=== PATIENT | male | born 1980 | race Caucasian/White ===

== ENCOUNTER 2022-02-16 09:24 | Emergency (ER) | payer OTHER, SELFPAY ==
--- NOTE | ~2022-02-16 | XR_ITS ---
EXAMINATION: XR chest 2V DATE: 02/16/2022 10:52 INDICATION: Cough. Right rib pain. TECHNIQUE: Frontal and lateral views of the chest were obtained. COMPARISON: None. FINDINGS: The chest demonstrates clear lungs without pneumonia, pleural effusion, or pneumothorax. Th e heart size is normal. IMPRESSION: 1. No acute cardiopulmonary disease. Reviewed, dictated and finalized at location A. FIXER
[2022-02-16 09:31] VITALS: BP 137/87; PULSE 90; RESP 18; TEMP 37.7; O2SAT 96
--- NOTE | 2022-02-16 10:38 | ED.URI ---
HPI - URI/Sore Throat General Chief Complaint: Upper Respiratory Infection Stated Complaint: upper respiratory Time Seen by Provider: 02/16/22 10:38 Source: patient, RN notes reviewed and old records reviewed Mode of arrival: ambulatory Limitations: no limitations History of Present Illness HPI Narrative: 41 year old male who presents to [facility] care with complaints of cough and congestion with initially some fevers starting the week of . Today he presents with continued cough, feelings of chest congestion and some discomfort to right lower rib cage, reports that he has not had fevers this week and is hoarse.Patient reports that he has been COVID vaccinated but no flu shot.He states that he has been taking some cold medication and Ibuprofen for his symptoms. MD elicited complaint: cough, sore throat and other (hoarseness) Onset (ago): day(s) (greater than 10 days) Exacerbating factors: other (coughing) Treatments prior to arrival: ibuprofen and cold medicine Related Data Allergies Allergy/AdvReac Type Severity Reaction Status Date / Time No Known Allergies Allergy Unknown Unverified 02/16/22 10:11 Review of Systems Review of Systems: CONSTITUTIONAL: reports malaise, chills, sweats, or fever. EYES: Denies visual changes, redness, or discharge. ENT: Reports rhinorrhea, congestion, sinus pain,no otalgia or sore throat, hoarseness noted also CARDIOVASCULAR: Denies chest pain, palpitations, or edema. RESPIRATORY: Reports cough.? Denies dyspnea. GASTROINTESTINAL: Denies abdominal pain, nausea, vomiting, diarrhea SKIN: Denies rash or itching. MUSCULOSKELETAL: Denies myalgia. NEUROLOGIC: Denies headache. All systems reviewed & are unremarkable except as noted in HPI and below PMFSH Surgical History Surgical History (Updated 02/19/22 @ 09:45 by Marissa Edmonds NP) History of removal of testicle Social History Social History (Updated 02/19/22 @ 09:51 by Marissa Edmonds NP) Smoking status: Never smoker Alcohol intake: unknown Substance use type: does not use Gender identity (if verbalized by the patient): Male Comments At time of signature, agree with nursing past medical, surgical, social and family history. There is no relevant family history pertinent to the presenting complaint Exam Narrative: GENERAL: Well-appearing, well-nourished, and in no acute distress. HEAD: Normocephalic EYES: PERRLA, conjunctivae clear ENT: Nares clear, turbinates edematous and erythematous, clear discharge. Mucous membranes moist. TM pearly [place] with dull light reflex bilaterally; no tragal tenderness. Oropharynx erythematous without lesions. Tonsils not enlarged and without exudate, no drooling, no hoarseness, no trismus, uvula midline. NECK: Supple. No lymphadenopathy CHEST: Scattered wheezes on auscultation, breath sounds equal. scattered wheezing, no rhonchi, rales, or stridor. No respiratory distress, speaks in full sentences.harsh cough SAO2 96% on room air HEART: Regular rate and rhythm. No murmur heard. SKIN: Warm, dry, no rash. NEURO: Alert and oriented x3. PSYCH: Normal mood and affect Course Course Emergency Course: Patient is aware of diagnosis, understands and agrees to treatment plan.? Anticipatory guidance given.? Patient agrees to follow-up as directed and is aware of reasons to seek care at the emergency department. Portions of this record may have been created with voice recognition software Level of Care: Express Care Visit Vital Signs Vital signs: Vital Signs Temperature 37.7 C H 02/16/22 09:31 Pulse Rate 90 02/16/22 09:31 Respiratory Rate 18 02/16/22 09:31 Blood Pressure 137/87 02/16/22 09:31 Pulse Oximetry 96 02/16/22 09:31 Oxygen Delivery Room Air 02/16/22 09:31 Temperature 37.7 C H 02/16/22 09:31 Pulse Rate 90 02/16/22 09:31 Respiratory Rate 18 02/16/22 09:31 Blood Pressure 137/87 02/16/22 09:31 Pulse Oximetry 96
== END 2022-02-16 11:46 | disposition home or self-care (01) ==
PROVIDERS: Emergency Provider Registered Nurse
DX: J06.9 Acute upper respiratory infection, unspecified (principal)
CPT/HCPCS: 71046; 99203; G0463

== ENCOUNTER 2024-03-16 12:43 | Outpatient (CLI) | payer OTHER, SELFPAY ==
[2024-03-16 20:49] LABS: Hematocrit 48.8 % (42.0-52.0); Hemoglobin 15.8 g/dL (14.0-18.0); Mean Corpuscular HGB Conc 32.4 g/dl (32-36); Mean Corpuscular Hemoglobin 29.3 pg (26-34); Mean Corpuscular Volume 90.4 fl (80-100); Mean Platelet Volume 10.5 fl (7.4-10.4); Platelet Count Result 251 k/mm3 (150-375); Red Cell Distribution Width 12.3 % (11.5-14.5); White Blood Count 6.5 K/mm3 (4.5-10.0)
[2024-03-16 21:49] LABS: Hemoglobin A1C 6.3 % (<5.7)
[2024-03-16 22:02] LABS: Alanine Aminotransferase 81 U/L (6-50); Albumin Level 4.2 g/dL (3.5-5.1); Alkaline Phosphatase 100 U/L (38-126); Anion Gap -1 mmol/L (4-12); Aspartate Amino Transferase 81 U/L (17-59); Bilirubin,Total 0.8 mg/dL (0.2-1.3); Blood Urea Nitrogen 15 mg/dL (9-20); Calcium 9.1 mg/dL (8.4-10.2); Carbon Dioxide 30 mmol/L (22-30); Chloride 108 mmol/L (98-107); Cholesterol 218 mg/dL (0-200); Estimated Glomerular Filt Rate 60; Glucose 93 mg/dL (65-110); HDL Direct 35 mg/dL; Potassium 4.6 mmol/L (3.4-5.0); Sodium 137 mmol/L (137-145); Triglycerides 185 mg/dL (<150)
[2024-03-16 22:13] LABS: LDL Cholesterol Direct 134 mg/dL
[2024-03-16 22:33] LABS: Prostate Specific Antigen 0.5 ng/mL (< OR = 4.0)
== END 2024-03-16 12:44 | disposition home or self-care (01) ==
LOC: ANHBWCLAB 12:44
PROVIDERS: PCP Nurse Practitioner Adult Health; Visit Provider Nurse Practitioner Adult Health
DX: R73.9 Hyperglycemia, unspecified (principal); Z13.9 Encounter for screening, unspecified; Z12.5 Encounter for screening for malignant neoplasm of prostate
CPT/HCPCS: 36415; 80053; 80061; 83036; 84153; 84443; 85027; G0103

== ENCOUNTER 2024-07-09 16:13 | Outpatient (CLI) | payer OTHER, SELFPAY ==
--- NOTE | ~2024-07-09 | XR_ITS ---
3 VIEWS LUMBAR SPINE Ordering provider: Radha Green APRN History: . Pain in lower back, hurts to sit, injury 6 mths ago . Comparison: None. FINDINGS: VERTEBRAL BODIES: No visible fracture or subluxation. DISK SPACES: Narrowing of the disc L5-S1. SOFT TISSUES: Normal. IMPRESSION: No acute osseous abnormality lumbar spine. Degenerative disc disease at the level of L5-S1. Reviewed, dictated and finalized at location A.
--- NOTE | ~2024-07-09 | XR_ITS ---
XR sacrum coccyx min 2V Ordering provider: Radha Green APRN History: . M54.9 - Dorsalgia, unspecified . Comparison: None. FINDINGS: BONES: Posterior dislocation of the sacrococcygeal area. Possibility of a fracture cannot be excluded . JOINTS: The sacroiliac joint spaces are normal. SOFT TISSUES: Soft tissues are normal. IMPRESSION: Dislocation at the sacrococcygeal articulation with possibility of a fracture in the last coccygeal s egment. CT evaluation advised. Reviewed, dictated and finalized at location A. IMPRESSION: Dislocation at the sacrococcygeal articulation with possibility of a fracture i n the last coccygeal segment. CT evaluation advised.
== END 2024-07-09 16:14 | disposition home or self-care (01) ==
LOC: ANHBWCIMG 16:15
PROVIDERS: PCP Nurse Practitioner Adult Health; Visit Provider Nurse Practitioner Adult Health
DX: M51.379 Other intervertebral disc degeneration, lumbosacral region without mention of lumbar back pain or lower extremity pain (principal)
CPT/HCPCS: 72100; 72220

== ENCOUNTER 2024-08-28 12:57 | Emergency (ER) | payer OTHER, SELFPAY ==
--- OUTSIDE RECORDS SUMMARY | 2024-08-28 12:59 | XMS_ITS | Referral Summary ---
Author Organization [facility] [place] [address] [facility] lto Address [address] [place] [address] Care Team Providers Care Stock Buyer Name Role Phone Brooklyn Bonner DNP Unavailable [phone] Encounters Date Type Department Care Team Description 08/24/2024 Documentation [facility] [address] [facility] [address] [place] [id number] Luci Perales, ALEENA Prior Auth (Zepbound 2.5MG/0.5ML pen-injectors) from Last 3 Months Allergies No known active allergies Medications cetirizine (ZyrTEC) 10 mg tablet daily Active fluticasone propionate (FLONASE) 50 mcg/actuation nasal spray fluticasone propionate 50 mcg/actuation nasal spray,suspensio n SHAKE LIQUID AND USE 2 SPRAYS IN EACH NOSTRIL EVERY DAY Active pen needle, diabetic (NovoFine Plus) 32 gauge x 1/6 needleIndication s:Class 3 severe obesity without serious comorbidity with body mass index (BMI) of 40.0 to 44.9 in adult, unspecified obesity type,BMI 40.0-44.9, adult (HCC) 1 each daily 100 each 1 3 Active tirzepatide, weight loss, 2.5 mg/0.5 mL pen injectorIndicati ons:Class 3 severe obesity without serious comorbidity with body mass index (BMI) of 40.0 to 44.9 in adult, unspecified obesity type,BMI 40.0-44.9, adult (HCC) Inject 0.5 mL (2.5 mg total) under the skin every 7 days 3 mL 3 Active tirzepatide, weight loss, (ZEPBOUND) 5 mg/0.5 mL pen injectorIndicati ons:Class 3 severe obesity without serious comorbidity with body mass index (BMI) of 40.0 to 44.9 in adult, unspecified obesity type,BMI 40.0-44.9, adult (HCC) Inject 0.5 mL (5 mg total) under the skin every 7 days 3 mL 4 Active Active Problems Problem Noted Date Diagnosed Date BMI 40.0-44.9, adult 03/30/2022 Assessment & Plan (03/30/2022 10:27 AM INSURANCE APPRAISER): Discussed current weight, weight history and previous weight loss attempts. Discussed risks of obesity including development of weight related comorbidities. Discussed the importance of diet in weight loss. Advised to start tracking caloric intake and decrease. Advised 150 min of moderate intensity exercise per week. Information [facility]. Follow-up to possibly discuss medication options to help with weight loss if no improvement seen with consistent lifestyle changes. Decreased testosterone level 10/18/2021 Prediabetes 10/18/2021 Vitamin D deficiency 10/18/2021 Acute pain of right knee 11/05/2019 Effusion of right knee 11/05/2019 Immunizations Immunization Administration Dates Next Due Influenza, Quadrivalent, Zenaida l Culture-based MDCK, Preservative Free, Antibiotic Free, Intramuscular 03/30/2022 Influenza, Quadrivalent, Split, Intramuscular Influenza, Quadrivalent, Spl it, Preservative Free, Intramuscular 03/17/2020 Tdap 06/22/2019,02/24/2019 Social History Tobacco Use Types Packs/Day Years Used Date Smoking Tobacco: Never Smokeless Tobacco: Never Alcohol Use Standard Drinks/Week Comments Not Currently 0 (1 standard drink = 0.6 oz pur e alcohol) PHQ-2 Answer Date Recorded PHQ-2 Total Score (If total score is 3 or more points, staff should administer the PHQ-9) 0 03/30/2022 Personal Safety Answer Date Recorded Getting School Help Needed Not on file 11/08 Sex and Gender Information Value Date Recorded Sex Assigned at Not on file Legal Sex Male 11:48 AM INSURANCE APPRAISER Gender Identity Not on file Sexual Orientation Not on file Last Filed Vital Signs Vital Sign Reading Time Taken Comments Blood Pressure 125/87 02/20/2023 12:48 PM INSURANCE APPRAISER Pulse 70 02/20/2023 12:48 PM INSURANCE APPRAISER Temperature 36.6 C (97.9 F) 02/20/2023 12:48 PM INSURANCE APPRAISER Respiratory Rate 17 10/27/2022 11:1 0 PM CDT Oxygen Saturation 96% 02/20/2023 12: 48 PM INSURANCE APPRAISER Inhaled Oxygen Concentration - - Weight 134.4 kg (296 lb 3.2 oz) 023 12:48 PM INSURANCE APPRAISER Height 182.9 cm (6') 02/20/2023 12:48 PM INSURANCE APPRAISER Body Mass Index 40.17 02/20/2023 12:48 PM INSURANCE APPRAISER Plan of Treatment Not on file Insurance [facility] [employer] [facility] [employer] Address: [facility] [id number] [place] [id number] [facility] [employer] [facility] H[employer]/PPO Address: [address] [address] [place] [address] [facility] [employer] Address: [address] [place] [phone] [facility] [employer] Address: [address] [address] [place] [address] Care Teams Stock Buyer Relationship Specialty Start Date End Date Brooklyn Bonner DNP [address] [address] Nurse Practitioner Nurse Practitioner 05/08/23
--- OUTSIDE RECORDS SUMMARY | 2024-08-28 12:59 | XMS_ITS | Clinical Summary ---
Author Organization [facility] Address [address] [place] [address] Phone Care Team Providers Care Bridge/Structure Inspection Team Leader Name Role Phone Unavailable Primary Care Provider Unavailabl e Allergies No known active allergies Medications No known medications Active Problems Problem Noted Date Diagnosed Date Prediabetes 09/20/2023 Morbid obesity with body mass index of 40.0-49.9 09/20/2023 Family History Medical History Relation Name Comments Colon Cancer Neg Hx Social History Tobacco Use Types Packs/Day Years Used Date Smoking Tobacco: Never Smokeless Tobacco: Never Tobacco Cessation:Counseling Given: Not Answered Alcohol Use Standard Drinks/Week Comments Yes 0 (1 standard drink = 0.6 oz pur e alcohol) Sex and Gender Information Value Date Recorded Sex Assigned at Not on file Legal Sex Male 11:01 PM CDT Gender Identity Not on file Sexual Orientation Not on file Last Filed Vital Signs Vital Sign Reading Time Taken Comments Blood Pressure 138/81 08/23/2023 1:20 PM CDT Pulse 52 08/23/2023 1:20 PM CDT Temperature 36.3 C (97.4 F) 08/23/2023 1:00 PM CDT Respiratory Rate 18 08/23/2023 1:20 PM CDT Oxygen Saturation 94% 08/23/2023 1:20 PM CDT Inhaled Oxygen Concentration - - Weight 132.9 kg (293 lb) 08/23/2023 12:11 PM CDT Height 180.3 cm (5' 11) 08/23/2023 12:11 PM CDT Body Mass Index 40.87 08/23/2023 12:11 PM CDT Plan of Treatment Health Maintenance Due Date Last Done Comments Pre-Diabetes and Diabetes Screening 1981 HEPATITIS B VACCINES (1 of 3 - 19+ 3-dose series) 02/26/2000 INFLUENZA VACCINE (#1) 2023 3, 03/17/2020, 03/17/2020 DTAP/TDAP/TD VACCINES (3 - Td or Tdap) 06/21/2029 06/22/2019, 02/24/2019 HPV VACCINES Aged Out No longer eligi ble based on patient's age to complete this topic Insurance [facility] [id number] Advance Directives For more information, please contact: [phone] * Full Code (Latest Code Status on File) Date Activated Date Inactivated Comments 08/23/2023 12:08 PM 08/23/2023 3:23 PM
--- OUTSIDE RECORDS SUMMARY | 2024-08-28 12:59 | XMS_ITS | Clinical Summary ---
Author Organization [facility] [place] [address] [facility] lto Address [address] [facility] [place] [address] Care Team Providers Care Diesel Dinkey Operator Name Role Phone Brooklyn Bonner DNP Unavailable Allergies No known active allergies Medications cetirizine [...] in adult, unspecified obesity type,BMI 40.0-44.9, adult ([facility]) Inject 0.5 mL (5 mg total) under the skin every 7 days 3 mL 4 Active Active Problems Problem Noted Date Diagnosed Date BMI 40.0-44.9, adult 03/30/2022 Assessment & Plan (03/30/2022 10:27 AM CANDY WAFFLE ASSEMBLER): Discussed current weight, weight history and previous weight loss attempts. Discussed risks of obesity including development of weight related comorbidities. Discussed the importance of diet in weight loss. Advised to start tracking caloric intake and decrease. Advised 150 min of moderate intensity exercise per week. Information given for [facility] Weight management program. Follow-up to possibly discuss medication options to help with weight loss if no improvement seen with consistent lifestyle changes. Decreased testosterone level 10/18/2021 Prediabetes 10/18/2021 Vitamin D deficiency 10/18/2021 Acute pain of right knee 11/05/2019 Effusion of right knee 11/05/2019 Encounters Date Type Department Care Team Description 08/24/2024 Documentation [place] [id number] [address] Luci Perales, ALEENA Prior Auth (Zepbound 2.5MG/0.5ML pen-injectors) from Last 3 Months Immunizations Immunization Administration Dates Next Due Influenza, Quadrivalent, Zenaida l Culture-based MDCK, Preservative Free, Antibiotic Free, Intramuscular 03/30/2022 Influenza, Quadrivalent, Split, Intramuscular Influenza, Quadrivalent, Spl it, Preservative Free, Intramuscular 03/17/2020 Tdap 06/22/2019,02/24/2019 Surgical History Surgery Date Site/Laterality Comments TESTICLE SURGERY 1 testicle removed when a child. Medical History Medical History Date Comments Prediabetes Family History Medical History Relation Name Comments No Known Problems Brother 1 No Known Problems Brother 2 No Known Problems Brother 3 Lung cancer Father + tob Lung cancer Father's Brother + tob Colon cancer Father's Sister 1 Diabetes Father's Sister 2 Heart disease Maternal Grandfather Heart disease Maternal Grandmother Heart disease Mother Hypertension Mother Prostate cancer Neg Hx Relation Name Status Comments Brother 1 Alive Brother 2 Alive Brother 3 Alive Father Alive Father's Brother Father's Sister 1 Alive Father's Sister 2 Alive Maternal Grandfather Alive Maternal Grandmother Alive Mother Alive Paternal Grandfather Paternal Grandmother Sister Alive Social History Tobacco Use Types Packs/Day Years [...] on file Legal Sex Male 11:48 AM CANDY WAFFLE ASSEMBLER Gender Identity Not on file Sexual Orientation Not on file Obstetrics History Last Filed Vital Signs Vital Sign Reading Time Taken Comments Blood Pressure 125/87 02/20/2023 12:48 PM CANDY WAFFLE ASSEMBLER Pulse 70 02/20/2023 12:48 PM CANDY WAFFLE ASSEMBLER Temperature 36.6 C (97.9 F) 02/20/2023 12:48 PM CANDY WAFFLE ASSEMBLER Respiratory Rate 17 10/27/2022 11:1 0 PM CDT Oxygen Saturation 96% 02/20/2023 12: 48 PM CANDY WAFFLE ASSEMBLER Inhaled Oxygen Concentration - - Weight 134.4 kg (296 lb 3.2 oz) 023 12:48 PM CANDY WAFFLE ASSEMBLER Height 182.9 cm (6') 02/20/2023 12:48 PM CANDY WAFFLE ASSEMBLER Body Mass Index 40.17 02/20/2023 12:48 PM CANDY WAFFLE ASSEMBLER Plan of Treatment Health Maintenance Due Date Last Done Comments Hepatitis C Screening 1981 Hepatitis B Screening 1999 Depression Screening 03/30/2023 03/30/2022 Regular Well Visit/Exam 18-64 03/30/2023 03/30/2022, 03/30/2022 Influenza Vaccine (Season Ended) 2024 03/30/2022, 03/17/2020, 03/17/2020 DTaP/Tdap/Td Vaccine (3 - Td or Tdap) 06/21/2029 06/22/2019, 02/24/2019 HPV Vaccines Aged Out No longer eligi ble based on patient's age to complete this topic Pneumococcal vaccine <65 Aged Out No longer eligible based on patient's age to complete this topic Varicella Vaccines Discontinued Insurance [id number] EMPLOYEES [employer] [facility] [employer] Care Teams Diesel Dinkey Operator Relationship Specialty Start Date End Date Brooklyn Bonner DNP [address] [address] Nurse Practitioner Nurse Practitioner 05/08/23
--- NOTE | 2024-08-28 13:21 | ED.DENTAL ---
HPI - Dental/Oral General Chief complaint: Dental/Oral Stated complaint: Tooth Pain Time Seen by Provider: 08/28/24 13:12 Source: patient and RN notes reviewed Mode of arrival: ambulatory Limitations: no limitations History of Present Illness HPI Narrative: Patient presents today complaining of right upper anterior tooth pain since last night with some mild swelling. Denies fever, shortness of breath, or difficulty swallowing. Currently rates pain 7/10 and has tried no [id number] treatment prior to arrival. Reports gross dental decay for many years and he does not currently have a dentist. No recent antibiotic use. Related Data Allergies Allergy/AdvReac Type Severity Reaction Status Date / Time No Known Allergies Allergy Unknown Unverified 07/09/24 15:48 Review of Systems Review of Systems: CONSTITUTIONAL: Denies body aches, fever, chills, or sweats. EYES: Denies visual changes, redness, or discharge. ENT: Denies rhinorrhea, congestion, sore throat, or otalgia.+ dental pain CARDIOVASCULAR: Denies chest pain, palpitations, or edema. RESPIRATORY: Denies cough or dyspnea. GASTROINTESTINAL: Denies abdominal pain, nausea, vomiting, or diarrhea. GENITOURINARY: Denies dysuria or hematuria. SKIN: Denies rash, itching, or wounds. MUSCULOSKELETAL: Denies back pain, joint pain, or myalgia. NEUROLOGIC: Denies headache, numbness, tingling, or weakness. PSYCH: Denies depression or anxiety. [facility], [facility] Surgical History Surgical History History of removal of testicle Family History Family History Mother Heart disease Hypertension Father Cancer Social History Social History Smoking status: Never smoker Alcohol intake: current Alcohol use details: 1-4 per week. 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 Please see nursing chart for further information. There is no relevant family history pertinent to the presenting complaint Exam Narrative: GENERAL: Well-appearing, well-nourished, and in no acute distress. HEAD: Normocephalic, atraumatic. EYES: EOMI. No redness or drainage. Conjunctivae normal. ENT: Mucous membranes pink and moist. Nares clear. No rhinorrhea. No trismus. Gross dental decay. Patient localizes his pain above tooth 8. Visualized tooth 8. And 9 are brown in color and almost fully decayed away. Adjacent gumline is erythematous and edematous. No obvious periapical abscess. Very mild adjacent jaw swelling. NECK: Normal AROM. CHEST: No respiratory distress. EXTREMITIES: Normal range of motion. No edema. SKIN: Warm, dry, no rash. Capillary refill normal. Normal skin turgor. NEURO: No focal deficits. Alert and oriented x3. Gait steady. PSYCH: Normal affect. No signs of depression or anxiety. Course Course Level of Care: Express Care Visit Vital Signs Vital signs: Vital Signs Temperature 97.5 F L 08/28/24 13:24 Pulse Rate 53 L 08/28/24 13:24 Respiratory Rate 16 08/28/24 13:24 Blood Pressure 166/101 H 08/28/24 13:24 Pulse Oximetry 97 08/28/24 13:24 Oxygen Delivery Room Air 08/28/24 13:24 Temperature 97.5 F L 08/28/24 13:24 Pulse Rate 53 L 08/28/24 13:24 Respiratory Rate 16 08/28/24 13:24 Blood Pressure 166/101 H 08/28/24 13:24 Pulse Oximetry 97 08/28/24 13:24 Oxygen Delivery Room Air 08/28/24 13:24 Reviewed MDM - Dental/Oral MDM Narrative Medical decision making narrative: Patient will be started on a course of amoxicillin for presumed dental abscess. Recommend dental visit as soon as possible. Strict ED precautions given. Differential Diagnosis Differential diagnosis: Likely gingival abscess, dental caries, toothache and dental abscess Critical Care Time Critical Care Time Critical Care Time: No Discharge Plan Discharge Clinical Impression: Dental abscess Patient Disposition: Home Condition: Stable Instructions: Antibiotic Form, Dental Abscess (ED) Additional Instructions: Please take the amoxicillin as prescribed until gone. Follow-up with a dentist as soon as possible. Start an anti-inflammatory such as Aleve or ibuprofen to help with pain and inflammation. As discussed, if you develop any worsening symptoms such as fever, severe facial swelling, shortness of breath, or difficulty swallowing, please go to the ER immediately for further evaluation and treatment. Your blood pressure was elevated above 120/80 today at Urgent Care. This puts you above the threshold for follow up. Please schedule a followup visit with your personal physician as soon as possible, for further evaluation and treatment. Even blood pressure exceeding 120/80 may indicate pre-hypertension. Patient Language: Citizen Of [place] Prescriptions: New amoxicillin 875 mg tablet 875 mg PO Q12H 10 Days Qty: 20 0RF No Action lisinopril 10 mg tablet 10 mg PO DAILY Qty: 30 1RF Zepbound 2.5 mg/0.5 mL pen injector 2.5 mg subcut WEEKLY Qty: 2 0RF Rx Instructions: for 4 weeks metformin 500 mg tablet extended release 24 hr 500 mg PO DAILY Qty: 90 3RF Zepbound 5 mg/0.5 mL pen injector 5 mg subcut WEEKLY Qty: 2 0RF Follow-up/Referrals: Radha Green APRN [Primary Care Provider] - Stand Alone Forms: Work/School Release IP Time of Disposition: 13:25
[2024-08-28 13:24] VITALS: BP 166/101; PULSE 53; RESP 16; TEMP 36.4; O2SAT 97
== END 2024-08-28 13:30 | disposition home or self-care (01) ==
PROVIDERS: Emergency Provider Nurse Practitioner; PCP Nurse Practitioner Adult Health
DX: K04.7 Periapical abscess without sinus (principal)
CPT/HCPCS: 99213; G0463